=== PATIENT | male | born 1990 | race Two or more races ===

== ENCOUNTER 2022-10-13 02:28 | Emergency (ER) | payer OTHER ==
[~2022-10-13] VITALS: Ht 185.4 cm; Wt 86.4 kg
[2022-10-13 02:36] VITALS: BP 133/85
[2022-10-13] MEDS ORDERED: HYDR-4808 PO (03:08)
== END 2022-10-13 03:16 | disposition home or self-care (01) ==
LOC: EMS 02:30
DX: T20.04XA Burn of unspecified degree of nose (septum), initial encounter (principal); F41.9 Anxiety disorder, unspecified; I10 Essential (primary) hypertension; Z98.890 Other specified postprocedural states
CPT/HCPCS: 99283; Z7502